=== PATIENT | male | born 1990 | race Caucasian/White ===

== ENCOUNTER 2025-04-08 22:07 | Emergency (ER) | payer OTHER, SELFPAY ==
[2025-04-08 22:08] VITALS: BP 157/110; PULSE 69; RESP 18; TEMP 36.7; O2SAT 99; BMI 28.6
--- NOTE | 2025-04-08 22:12 | PCA ---
NO OLD EKG
--- NOTE | 2025-04-08 22:23 | EKG12_ITS ---
Test Reason : CP Blood Pressure : */* mmHG Vent. Rate : 69 BPM Atrial Rate : 69 BPM P-R Int : 216 ms QRS Dur : 96 ms QT Int : 384 ms P-R-T Axes : 51 21 30 degrees QTcB Int : 411 ms Sinus rhythm with 1st degree A-V block Otherwise normal ECG Confirmed by JOSEPH MOLINA MD ([id number]), magazine editor KACEY GANDHI ([id number]) on 04/10/2025 8:34:00 AM Referred By: BB Confirmed By: JOSEPH MOLINA MD
--- NOTE | 2025-04-08 22:24 | EDS_ITS ---
HPI History of Present Illness Chief Complaint: Chest Pain Narrative Narrative: Patient is a 34-year-old male with no significant PMHx presenting with chest discomfort. - Reports intermittent chest discomfort throughout the day, worsening in the afternoon and becoming more uncomfortable around [id number]. - Denies waking up with symptoms; onset occurred while hiking in [email or web address]. - Describes discomfort as a tightness located where the lower anterior ribs converge in the middle, with some movement to the right side and associated rib discomfort. - Also reports numbness and tingling in the right arm at times with this. - Symptoms improve with activity and worsen with rest. - Associated symptoms include mild dyspnea and abdominal pressure at the peak of discomfort. - Denies palpitations or presyncope. - Denies leg pain or swelling. - Reports a similar episode a few weeks ago, characterized by rib tightness and diaphoresis, but without arm involvement. - Consumed three meals today; experienced difficulty swallowing during lunch due to this discomfort. - Occasional smoker, approximately one pack per week, with recent reduction in use. - Family history of CHF in grandparents, both diagnosed in their 80s; uncle at 53. [facility] Medical History no medical history no medical history Home Medications ?Medication ?Instructions ?Recorded ?Last Taken ?Type pantoprazole 40 mg tablet,delayed 40 mg PO DAILY #14 t abs 04/09/25 Unknown Rx release Allergy/AdvReac Type Severity Reaction Status Date / Time No Known Allergies Allergy Verified 04/08/25 22:22 Social History (Updated 04/08/25 @ 22:[address] Yeison Barry MD) Smoking Status: Current some day smoker tobacco type: cigarettes substance use type: does not use ROS ROS ED Constitutional Constitutional ED: Denies chills or fever(s) Eyes Eyes: Denies change in vision or diplopia ENT ENT ED: Denies rhinorrhea or sore throat Cardiovascular Cardiovascular: Reports as per HPI, chest pain and radiating jaw, neck or arm pain; Denies leg edema, lightheadedness, palpitations or syncope Respiratory/Chest Respiratory/Chest: Denies cough or dyspnea Gastrointestinal Gastrointestinal: Denies abdominal pain, diarrhea, nausea or vomiting Genitourinary Genitourinary ED: Denies dysuria or hematuria Musculoskeletal Musculoskeletal: Denies back pain or neck pain Integumentary Denies abscess or rash Neurologic Neurologic: Denies headache(s), paresthesias or weakness Psychiatric Psychiatric: Denies suicidal thoughts EXAM Physical Exam Const Vital Signs: 04/08/25 22:08 04/08/25 22:25 04/08/25 23:41 Temperature 98.1 F Temperature Source Temporal Pulse Rate 69 71 Respiratory Rate 18 17 Blood Pressure 157/110 H 134/86 H Blood Pressure Mean 125 102 Pulse Ox 99 98 98 Oxygen Delivery Method Room Air Room Air Room Air 04/09/25 00:00 04/09/25 00:47 Temperature Temperature Source Pulse Rate 85 82 Respiratory Rate 14 16 Blood Pressure 137/88 H 135/78 H Blood Pressure Mean 104 97 Pulse Ox 98 98 Oxygen Delivery Method Room Air Room Air Positive well nourished and well developed General Appearance ED: well developed and NAD HEENT Reports moist mucous membranes normocephalic and atraumatic Eyes PERRL and EOMs intact bilaterally Neck full ROM and supple Chest Wall inspection of chest normal and palpation of chest normal Resp normal respiratory effort and clear to auscultation bilaterally Cardio regular rate, regular rhythm and no murmurs GI non-tender, non-distended and no masses Auscultation: normoactive bowel sounds Palpation: soft Back/Spine no CVA tenderness General Back: other FROM Extremity normal to inspection General Extremety ED: Negative for edema, pulses abnormal or tenderness General Extremity: Negative for edema or pulses abnormal Neuro oriented x3, CN's II-XII intact bilaterally and no sensory deficits noted Sensorium / Orientation: awake and alert Motor Exam: strength 5/5 throughout Psych Psych Narrative: a little anxious about sx Skin no rashes or lesions noted and no wounds Heart Score History: Moderately Suspicious ECG: Normal Age: </= 45 years Risk Factors: 1 or 2 Risk Factors Troponin: </= Normal Limit Score: 2 MDM MDM MDM Narrative Medical decision making narrative: In this healthy 34-year-old patient with intermittent chest pain throughout the day, his pain is non-exertional and non-pleuritic. His PERC score is 0, which obviates the need for further workup to rule out pulmonary embolism. He is also at low risk for coronary artery disease, with a heart score of 2 at most (not ye t counting troponin). The presentation is more likely gastrointestinal in origin, especially given that the patient had difficulty eating due to discomfort. A cardiac workup and chest X-ray were performed, and a GI cocktail was given to assess whether it would alleviate his chest tightness. Upon reevaluation, his chest tightness had improved, though it is unclear if this improvement was due to the GI cocktail. The chest X-ray and ECG were normal, and the first set of cardiac enzymes (troponin) was also normal. A second troponin measurement was drawn, which subsequently returned negative. With normal labs, negative serial troponins, and a low heart score, a cardiac cause is unlikely. During the visit, the patient mentioned that his primary care provider had recently ordered an MRI of his spine to evaluate possible nerve impingement causing previous symptoms. He reported intermittent pain between the shoulder blades that sometimes radiates to one or both sides, occasionally settling in the middle. However, an MRI could not be obtained at this time (evenings/weekends). Given the overall clinical picture, it is reasonable to prescribe a two-week course of pantoprazole and advise follow-up with his primary care provider. While the exact etiology of his chest discomfort is not definitively confirmed, the suspicion is that it may be esophageal or gastrointestinal in origin. The patient and his family are comfortable with this plan, and he appears safe for discharge with stable vital signs and resolution of symptoms. Lab Data Attestation: I reviewed the patient's lab results. Labs: Laboratory Results - last 24 hr 04/08/25 04/09/25 22:37 00:45 WBC 7.4 RBC 5.22 Hgb 15.7 Hct 43.6 MCV 83.5 MCH 30.1 MCHC 36.0 RDW Std Deviation 38.5 RDW Coeff of Barbara 12.7 Plt Count 222 MPV 9.3 Immature Gran % (Auto) 0.100 Neut % (Auto) 49.5 Lymph % (Auto) 35.2 [place] % (Auto) 11.1 H Eos % (Auto) 3.8 Baso % (Auto) 0.3 Absolute Neuts (auto) 3.7 Absolute Lymphs (auto) 2.60 Nucleated RBC % 0 Sodium 140 Potassium 3.3 Chloride 105 Carbon Dioxide 22.4 Anion Gap 13 BUN 13 Creatinine 0.90 Estim Creat Clear Calc 129.68 Est GFR (MDRD) Non-Af 114 BUN/Creatinine Ratio 14.5 Glucose 105 H Calcium 9.5 Troponin T High Sens 6 Troponin T Hi Sens 2 Hr < 6 Radiography Chest X-Ray - ED: 2 View, Read by ED Physician, No Acute Disease and No Infiltrates Diagnostic Testing: Clinical Impression(s) from Imaging Studies Chest X-Ray 04/08/25 22:30 IMPRESSION: NO ACUTE FINDINGS. Reading Location: [facility] Rhythm Strip Rhythm Strip: Sinus Rhythm Rate: 70 Ectopy: None EKG Initial EKG: Attestation: I personally reviewed and interpreted this EKG as follows: Interpretation: Sinus Rhythm, No Acute Injury Pattern and AV Block (First- degree) Comments: Nml axis & intervals except for slightly prolonged MO; otherwise nml EKG Prior EKG tracings: not available for review Prior: No Prior Discharge Plan Triage Chief Complaint: Chest Pain ED Provider: Yeison Barry Dx/Rx/DC Orders Clinical Impression: Chest pain Instructions: ED Chest Pain, Noncardiac Prescriptions: New pantoprazole 40 mg tablet,delayed release (DR/EC) 40 mg PO DAILY Qty: 14 0RF Primary Care Provider: Elaine Bucio BUILDING ARCHITECT Referrals: Ezio Cummings DO [Non-Staff, Family Practice] - 1-2 Weeks Print Language: Sinhala Disposition Disposition: Home, Self Care
[2025-04-08 22:25] VITALS: O2SAT 98
[2025-04-08] MEDS: Lidocaine 2% Viscous15 ML UDC 15 ML PO (22:28)
--- NOTE | 2025-04-08 22:30 | RAD_ITS ---
PROCEDURE: CHEST PA AND LATERAL 04/08/2025 REASON FOR EXAM: CHEST PAIN TECHNIQUE: Procedure Code: RADCXR Modality: DX Procedure: CHEST PA AND LATERAL COMPARISON: None available. FINDINGS: Hardware: None Heart: The heart size is normal. Mediastinum: The mediastinal contour is unremarkable. Lungs: The lungs are clear. No pneumothorax or pleural effusion. Bones: The bones are unremarkable. RAD/Chest PA and Lateral IMPRESSION: NO ACUTE FINDINGS. Reading [facility]
[2025-04-08 22:45] LABS: Hematocrit 43.6 % (40-54); Hemoglobin 15.7 g/dL (13.0-16.5); Immature Granulocytes Count 0.010 X10^3/uL (0.0-0.0); Mean Corp Hgb Conc 36.0 g/dL (32-36); Mean Corpuscular Volume 83.5 fL (80-94); Mean Platelet Vol. 9.3 fl (6.2-12.0); NRBC Flagged by Analyzer 0 % (0-5); Platelet Count 222 K/mm3 (150-450); RBC Distribution Width CV 12.7 % (11.6-14.6); RBC Distribution Width SD 38.5 fl (35.1-43.9); Red Blood Count 5.22 M/mm3 (4.6-6.2); White Blood Count 7.4 K/mm3 (4.4-11.0)
[2025-04-08 23:14] LABS: Anion Gap 13 (5-15); BUN 13 mg/dL (4-19); BUN/Creat Ratio 14.5 RATIO (10-20); Calcium,Total 9.5 mg/dL (7.6-11.0); Carbon Dioxide 22.4 mmol/L (21.0-32.0); Chloride 105 mmol/L (98-108); Estimated Creatinine Clearance 129.68 ml/min (50-250); Glucose 105 mg/dL (70-99); Potassium 3.3 mmol/L (3.3-5.1); Troponin T High Sensitivity 6 ng/L (<=22)
[2025-04-08 23:41] VITALS: BP 134/86; PULSE 71; RESP 17; O2SAT 98
[2025-04-09] VITALS: BP 137/88; PULSE 85; RESP 14; O2SAT 98
[2025-04-09 00:47] VITALS: BP 135/78; PULSE 82; RESP 16; O2SAT 98
[2025-04-09 02:05] LABS: Troponin T High Sens 2 HR < 6 ng/L (<=22)
[2025-04-09 02:21] VITALS: BP 144/92; PULSE 67; RESP 16; TEMP 36.6; O2SAT 98
== END 2025-04-09 02:25 | disposition home or self-care (01) ==
PROVIDERS: Emergency Provider Emergency Medicine; PCP Nurse Practitioner Family; Visit Provider Emergency Medicine
DX: R07.9 Chest pain, unspecified (principal); F17.210 Nicotine dependence, cigarettes, uncomplicated
CPT/HCPCS: 71046; 80048; 84484; 85025; 93005; 99285; A4216